=== PATIENT | female | born 1930 | race Caucasian/White ===

== ENCOUNTER 2016-10-27 17:21 | Emergency (ER) | payer MEDICARE ==
[~2016-10-27] VITALS: Ht 160 cm; Wt 57.0 kg
[~2016-10-27 17:21] MED LIST: ACYC400T PO; ALPR0.5T3 PO; ASPI325T PO; CALC1TAB26 PO; FOLI1TAB PO; LEVO100T4 PO; LISI-360 PO; MECL25CH PO; META48.53 PO; METH2.5 PO; NORC7.5T PO; SIMV20 PO; STOOL SOFTENER PO; TAB-TAB PO
[2016-10-27 17:26] VITALS: BP 166/89; PULSE 88; RESP 18; TEMP 98.9; O2SAT 99
[2016-10-27] MEDS ORDERED: FOLI400T PO (17:34)
[2016-10-27] MEDS ORDERED: ACYC400T PO (17:34)
[2016-10-27] MEDS ORDERED: SIMV20TA PO (17:34)
[2016-10-27] MEDS ORDERED: ASPI81CH CHEW (17:34)
[2016-10-27] MEDS ORDERED: LEVO100T5 PO (17:34)
[2016-10-27] MEDS ORDERED: MULTTAB67 PO (17:34)
[2016-10-27] MEDS ORDERED: HYDR-3580 PO (17:34)
[2016-10-27] MEDS ORDERED: CALC600T4 PO (17:34)
[2016-10-27] MEDS ORDERED: LISI10TA3 PO (17:34)
[2016-10-27] MEDS ORDERED: METH2.5T PO (17:34)
[2016-10-27] MEDS ORDERED: ALPR.5 PO (17:34)
[2016-10-27] MEDS ORDERED: ORPHENADRINE INJ 60 MG/2 ML AMP IM ONE (17:45)
[2016-10-27] MEDS ORDERED: KETOROLAC TROMETHAMINE 60 MG/2 ML (IM) VIAL IM ONE (17:45)
--- NOTE | 2016-10-27 17:57 | PD ---
HPI Chief Complaint: Pain: Acute or Chronic Time Seen by Provider: 17:30 Travel History International Travel<30 days: No Contact w/Intl Traveler<30days: No Traveled to known affect area: No History of Present Illness HPI Patient is a 6-year-old female presenting to the [facility] evaluation of back pain. Patient reports a history of back pain, she takes hydrocodone for this pain. Pain is similar in presentation but is more intense. She states it's been worse for the last 3-4 days, she has not attempted to contact her primary care provider. She denies any injury or trauma, she denies any dysuria, fevers , abdominal pain. Patient reports making her bed a few days ago and when she stood up her back started hurting worse. She states her pain is a 10 out of 10 , she took hydrocodone at 2 PM this afternoon. Patient states she's been taking it every 5 hours. PFSH Past Medical History Arthritis: Yes (RHEUMATOID) Blood Disorders: No Anxiety: Yes Depression: No Heart Rhythm Problems: No Cancer: Yes (melanoma 1995; SQUAMOUS CELL CA NECK) Cardiovascular Problems: Yes (HTN) High Cholesterol: Yes Chemotherapy: No Chest Pain: No Congestive Heart Failure: No Diabetes: No Diminished Hearing: No Endocrine: Yes Gastrointestinal Disorders: No Glaucoma: No Genitourinary: No Hepatitis: No Hiatal Hernia: No Hypertension: Yes Immune Disorder: Yes Implanted Vascular Access Dvce: Yes Medical other: Yes (arthritis) Musculoskeletal: Yes (RA) Neurologic: Yes Psychiatric: No Reproductive: No Respiratory: No (PNEUMONIA 06/07) Immunizations Current: Yes Radiation Therapy: No Thyroid Disease: Yes ?: Not LMP: menopause Menopausal: Yes : 2 Para: 2 Past Surgical History Body Medical Devices: MARTIN EYE LENS Eye Surgery: Yes (MARTIN CATARACT SX) Gynecologic Surgery: Yes (HYSTERECTOMY) Oral Surgery: Yes (T&A CHILDHOOD) Pacemaker: No Other Surgery: Yes Social History Alcohol Use: No Tobacco Use: No Substance Use: No Allergies-Medications (Allergen,Severity, Reaction): Coded Allergies: No Known Allergies (Verified , 12/09/15) Uncoded Allergies: ADHESIVES (Allergy, Intermediate, BLISTERS AND RED , 01/31/10) BANDAIDS CAN USE PAPER TAPE Reported Meds & Prescriptions Reported Meds & Active Scripts Active Aspirin 325 Mg Tab (Aspirin) 325 Mg Tab 325 Mg PO DAILY 30 Days Meclizine Hcl (Meclizine HCl) 25 Mg Chw 25 Mg PO Q8H PRN Reported Calcium Carbonate 1,500 Mg Tab 1,500 Mg PO BID 1,500 mg calcium carbonate (600 mg elemental calcium) Multiple Vitamin 1 Tab 1 Tab PO DAILY Aspirin 81 Mg Chew 81 Mg CHEW DAILY Simvastatin 20 Mg Tab 20 Mg PO DAILY Methotrexate 2.5 Mg Tab 2.5 Mg PO Q7D Lisinopril 10 Mg Tab 10 Mg PO DAILY Levothyroxine (Levothyroxine Sodium) 100 Mcg Tab 100 Mcg PO DAILY Hydrocodone-Acetaminophen 7.5-325 mg Tab 1 Tab PO Q4H PRN Folic Acid 400 Mcg Tab 1 Mcg PO DAILY Xanax (Alprazolam) 0.5 Mg Tab 0.5 Mg PO Q4H PRN Acyclovir 400 Mg Tab 400 Mg PO BID Metamucil Original Textur (Psyllium/Dextrose) Pow 1 Tsp PO PRN Calcium 600+D3 600-800 mg-Unit (Calcium Carbonate-Cholecalcife) 1 Tab Tab 1 Tab PO DAILY Rheumatrex (Methotrexate) 2.5 Mg Tab 15 Mg PO WEEKLY Lisinopril 10 mg (Lisinopril) 10 Mg Tab 10 Mg PO DAILY Levothyroxine 100 mcg (Levothyroxine Sodium) 100 Mcg Tab 100 Mcg PO DAILY Raysal 7.5-325 mg (Hydrocodone-Acetaminophen 7.5-325 mg) 1 Tab 1 Tab PO BID PRN Alprazolam 0.5 Mg Tab 0.5 Mg PO BID Acyclovir 400 mg (Acyclovir) 400 Mg Tab 400 Mg PO BID [Stool Softener] 1 Cap PO BID Folate (Folic Acid) 1 Mg Tab 1 Mg PO DAILY Multivitamin (Multivitamins) 1 Tab Tab 1 Tab PO DAILY Zocor (Simvastatin) 20 Mg Tab 20 Mg PO HS Review of Systems Except as stated in HPI: all other systems reviewed are Neg Musculoskeletal: Positive: Myalgias, Arthralgias, Pain Psychiatric: Positive: Anxiety Physical Exam Narrative GENERAL: Well-developed, well-nourished, elderly female. Resting comfortably in no acute distress. Appears anxious. SKIN: Focused skin assessment warm/dry. HEAD: Atraumatic. Normocephalic. EYES: Pupils equal and round. No scleral icterus. No injection or drainage. ENT: No nasal bleeding or discharge. Mucous membranes pink and moist. NECK: Trachea midline. No JVD. CARDIOVASCULAR: Regular rate and rhythm. 2/6 systolic murmur RESPIRATORY: No accessory muscle use. Clear to auscultation. Breath sounds equal bilaterally. GASTROINTESTINAL: Abdomen soft, non-tender, nondistended. Hepatic and splenic margins not palpable. MUSCULOSKELETAL: No obvious deformities. No clubbing. No cyanosis. No edema. NEUROLOGICAL: Awake and alert. No obvious cranial nerve deficits. Motor grossly within normal limits. Normal speech. PSYCHIATRIC: Anxious mood and affect; insight and judgment normal. Data Data Last Documented VS Vital Signs Date Time Temp Pulse Resp B/P Pulse Ox O2 Delivery O2 Flow Rate FiO2 10/27/16 18:20 18 10/27/16 17:26 98.9 88 166/89 99 Orders Ketorolac Inj (Toradol Inj) (10/27/16 17:45) Orphenadrine Inj (Norflex Inj) (10/27/16 17:45) Urinalysis - C+S If Indicated (10/27/16 17:40) Labs Laboratory Tests Test 10/27/16 18:08 Urine Color LIGHT-YELLOW Urine Turbidity CLEAR Urine pH 7.5 Urine Specific [place] 1.004 Urine Protein NEG mg/dL Urine Glucose (UA) NEG mg/dL Urine Ketones NEG mg/dL Urine Occult Blood NEG Urine Nitrite NEG Urine Bilirubin NEG Urine Urobilinogen LESS THAN 2.0 MG/DL Urine Leukocyte Esterase NEG Urine RBC LESS THAN 1 /hpf Urine WBC LESS THAN 1 /hpf Urine Squamous Epithelial <1 /hpf Cells Microscopic Urinalysis Comment CULT NOT INDICATED MDM Medical Decision Making Medical Screen Exam Complete: Yes Emergency Medical Condition: Yes Interpretation(s) Vital Signs Date Time Temp Pulse Resp B/P Pulse Ox O2 Delivery O2 Flow Rate FiO2 10/27/16 17:26 98.9 88 18 166/89 99 Differential Diagnosis Acute on chronic back pain versus UTI versus anxiety versus muscle sprain versus muscle spasm Narrative Course Patient is 86-year-old female presenting to emergency department via EMS for evaluation of back pain. Patient has a chronic history of back pain, pain is similar to what she is experiencing the past. Patient takes hydrocodone for pain normally but this has not been helping. Patient has had no new injury or trauma, urinalysis is negative for urinary tract infection. Patient was given Toradol and Norflex in the emergency department, she reports mild improvement in her pain. Patient has a walker at home that she can utilize to ambulate with , she lives at [facility] with her . Son presented to the emergency department to corn picker patient and bring her home. He was also educated on discharge instructions and need for follow-up. He stated that she ambulates with a walker normally. Patient is stable for discharge. Diagnosis Primary Impression: Chronic back pain Qualified Code: M54.9 - Chronic back pain, unspecified back location, unspecified back pain laterality Referrals: Primary Care Physician 3 days Patient Instructions: Back Pain (ED), General Instructions Additional Instructions: Apply warm moist heat to affected area, continue range of motion exercises Follow-up with your primary doctor Continue home medications previously prescribed Return to emergency department for any new or worsening symptoms Med/Other Pt SpecificInfo: No Change to Meds Disposition: 01 DISCHARGE HOME Condition: Stable Anabella Graves Oct 27, 2016 17:57
[2016-10-27 18:39] LABS: BLOOD, URINE NEG (NEG); GLUCOSE,URINE NEG (NEG); KETONE, URINE NEG (NEG); NITRITE,URINE NEG (NEG); PH, URINE 7.5 (5.0-8.5); SQUAMOUS EPITHELIAL CELL URINE <1 /hpf (0-5); URINE COLOR LIGHT-YELLOW (YELLW/STRAW)
[2016-10-27 18:44] LABS: COMMENT (UR) CULT NOT INDICATED; CULTURE IF INDICATED CULT NOT INDICATED
== END 2016-10-27 19:52 | disposition home or self-care (01) ==
LOC: NEPD 17:21
DX: M54.9 Dorsalgia, unspecified (principal); G89.29 Other chronic pain; I10 Essential (primary) hypertension; M06.9 Rheumatoid arthritis, unspecified
CPT/HCPCS: 81001; 96372; 99284; J1885; J2360

== ENCOUNTER 2016-11-23 22:38 | Emergency (ER) | payer MEDICARE ==
[~2016-11-23] VITALS: Ht 160 cm; Wt 54.0 kg
[~2016-11-23 22:38] MED LIST changes: +ALPR.5 PO; +ASPI81CH CHEW; +CALC600T4 PO; +FOLI400T PO; +HYDR-3580 PO; +LEVO100T5 PO; +LISI10TA3 PO; +METH2.5T PO; +MULTTAB67 PO; +SIMV20TA PO
[2016-11-23 22:44] VITALS: BP 169/77; PULSE 116; RESP 22; TEMP 98.5; O2SAT 99
[2016-11-23] MEDS ORDERED: KETOROLAC TROMETHAMINE 30 MG/ML (IVP) VIAL IV PUSH ONE (23:00)
--- NOTE | 2016-11-23 23:06 | PD ---
HPI Chief Complaint: Pain: Acute or Chronic Time Seen by Provider: 23:01 Travel History International Travel<30 days: No Contact w/Intl Traveler<30days: No Traveled to known affect area: No History of Present Illness HPI 86-year-old female presents to the emergency department by EMS transport from local assisted living facility for complaint of severe low back pain and right thigh pain. Patient states symptoms have acutely worsen 7 7 PM. Pain is unresponsive to one half dose of Lortab. Patient takes hydrocodone daily. Patient has history of severe osteoarthritis rheumatoid arthritis and spinal stenosis. Patient denies any abdominal pain. Patient has noted some redness and discomfort to the lower leg. Patient states pain with range of motion at the hip causes excruciating pain 10 over 10 in intensity. Patient has no pallor or coolness of the right lower extremity. Patient has no history of claudication. Patient has chronic back pain was here 10/27/16 with exacerbation of low back pain responsive to anti-inflammatories. Patient's had no dysuria frequency urgency flank pain or hematuria. Patient denies any chest pain or shortness of breath. Patient's had no fever or chills. PFSH Past Medical History Narrative Medical Rheumatoid arthritis spinal stenosis dyslipidemia CVA melanoma hypothyroidism hypertension anxiety; cataract surgery hysterectomy tonsillectomy; no tobacco use: Nursing notes reviewed Arthritis: Yes (RHEUMATOID) Blood Disorders: No Anxiety: Yes Depression: No Heart Rhythm Problems: No Cancer: Yes (melanoma 1995; SQUAMOUS CELL CA NECK) Cardiovascular Problems: Yes (HTN) High Cholesterol: Yes Chemotherapy: No Chest Pain: No Congestive Heart Failure: No Cerebrovascular Accident: Yes (2016) Diabetes: No Patient Takes Glucophage: No Diminished Hearing: No Endocrine: Yes Gastrointestinal Disorders: No Glaucoma: No Genitourinary: No Hepatitis: No Hiatal Hernia: No Hypertension: Yes Immune Disorder: Yes Implanted Vascular Access Dvce: Yes Medical other: Yes (arthritis) Musculoskeletal: Yes (RA) Neurologic: Yes Psychiatric: No Reproductive: No Immunizations Current: Yes Radiation Therapy: No Thyroid Disease: Yes Tetanus Vaccination: > 5 Years Influenza Vaccination: No ?: Not Menopausal: Yes : 2 Para: 2 Past Surgical History Body Medical Devices: MARTIN EYE LENS Eye Surgery: Yes (MARTIN CATARACT SX) Gynecologic Surgery: Yes (HYSTERECTOMY) Hysterectomy: Yes Oral Surgery: Yes (T&A CHILDHOOD) Pacemaker: No Other Surgery: Yes Social History Alcohol Use: No Tobacco Use: No Substance Use: No Allergies-Medications (Allergen,Severity, Reaction): Coded Allergies: No Known Allergies (Verified , 12/09/15) Uncoded Allergies: ADHESIVES (Allergy, Intermediate, BLISTERS AND RED , 01/31/10) BANDAIDS CAN USE PAPER TAPE Reported Meds & Prescriptions Reported Meds & Active Scripts Active Keflex (Cephalexin) 500 Mg Capsule 500 Mg PO QID 10 Days Doxycycline Hyclate 100 Mg Cap 100 Mg PO BID Reported Vitamin D3 (Cholecalciferol) 400 Unit Tab 400 Units PO DAILY Calcium Carbonate 1,500 Mg Tab 1,500 Mg PO BID 1,500 mg calcium carbonate (600 mg elemental calcium) Multiple Vitamin 1 Tab 1 Tab PO DAILY Aspirin 81 Mg Chew 81 Mg CHEW DAILY Simvastatin 20 Mg Tab 20 Mg PO DAILY Methotrexate 2.5 Mg Tab 2.5 Mg PO Q7D Lisinopril 10 Mg Tab 10 Mg PO DAILY Levothyroxine (Levothyroxine Sodium) 100 Mcg Tab 100 Mcg PO DAILY Hydrocodone-Acetaminophen 7.5-325 mg Tab 1 Tab PO Q4H PRN Folic Acid 400 Mcg Tab 1 Mcg PO DAILY Xanax (Alprazolam) 0.5 Mg Tab 0.5 Mg PO Q4H PRN Acyclovir 400 Mg Tab 400 Mg PO BID [Stool Softener] 1 Cap PO BID Review of Systems Except as stated in HPI: all other systems reviewed are Neg General / Constitutional: No: Fever, Chills HENT: No: Congestion Cardiovascular: No: Chest Pain or Discomfort Respiratory: No: Shortness of Breath Gastrointestinal: No: Vomiting, Abdominal Pain Genitourinary: No: Decreased Urinary Output, Flank Pain Musculoskeletal: Positive: Myalgias, Arthralgias, Limited ROM, Pain Skin: No Rash Neurologic: No: Weakness, Dizziness Psychiatric: No: Anxiety Hematologic/Lymphatic: No: Lymph Node Enlargement Physical Exam Narrative GENERAL: Elderly frail female in obvious discomfort no respiratory distress SKIN: Warm and dry. HEAD: Normocephalic. EYES: No scleral icterus. No injection or drainage. NECK: Supple, trachea midline. No JVD or lymphadenopathy. CARDIOVASCULAR: Regular rate and rhythm without murmurs, gallops, or rubs. RESPIRATORY: Breath sounds equal bilaterally. No accessory muscle use. GASTROINTESTINAL: Abdomen soft, non-tender, nondistended. No guarding or rebound. No palpable pulsatile mass. Nondistended. MUSCULOSKELETAL: No cyanosis, or edema. Mild right lower leg edema and erythema. Negative Homans. Mild increased warmth. No pallor or coolness. Dorsalis pedis pulse 2+ to palpation, capillary refill brisk and less than 2 seconds. Range of motion at right hip causes increased pain with attempted hip flexion internal/external rotation abduction unable to perform abduction. No limb length discrepancy no shortening or external rotation or internal rotation of the right lower extremity. BACK: Nontender without obvious deformity. No CVA tenderness. Data Data Last Documented VS Vital Signs Date Time Temp Pulse Resp B/P Pulse Ox O2 Delivery O2 Flow Rate FiO2 11/24/16 02:13 110 20 152/71 94 Room Air 11/23/16 22:44 98.5 Orders Hip, Uni(Ap&Lat) W Ap Pelvis (11/23/16 ) ^ Saline Lock (11/23/16 22:58) Complete Blood Count With Diff (11/23/16 22:58) Basic Metabolic Panel (Bmp) (11/23/16 22:58) Urinalysis - C+S If Indicated (11/23/16 22:58) Us Leg Venous Doppler (11/23/16 ) Ketorolac Inj (Toradol Inj) (11/23/16 23:00) Spine, Lumbar - Lateral Only (11/23/16 ) Doxycycline (Vibramycin) (11/24/16 02:30) Labs Laboratory Tests Test 11/23/16 11/24/16 23:40 00:47 White Blood Count 14.0 TH/MM3 Red Blood Count 3.94 MIL/MM3 Hemoglobin 12.8 GM/DL Hematocrit 36.5 % Mean Corpuscular Volume 92.6 FL Mean Corpuscular Hemoglobin 32.5 PG Mean Corpuscular Hemoglobin 35.1 % Concent Red Cell Distribution Width 14.7 % Platelet Count 369 TH/MM3 Mean Platelet Volume 6.6 FL Neutrophils (%) (Auto) 83.7 % Lymphocytes (%) (Auto) 7.0 % Monocytes (%) (Auto) 8.9 % Eosinophils (%) (Auto) 0.2 % Basophils (%) (Auto) 0.2 % Neutrophils # (Auto) 11.7 TH/MM3 Lymphocytes # (Auto) 1.0 TH/MM3 Monocytes # (Auto) 1.2 TH/MM3 Eosinophils # (Auto) 0.0 TH/MM3 Basophils # (Auto) 0.0 TH/MM3 CBC Comment DIFF FINAL Differential Comment Sodium Level 130 MEQ/L Potassium Level 4.1 MEQ/L Chloride Level 92 MEQ/L Carbon Dioxide Level 25.5 MEQ/L Anion Gap 13 MEQ/L Blood Urea Nitrogen 10 MG/DL Creatinine 0.73 MG/DL Estimat Glomerular Filtration 76 ML/MIN Rate Random Glucose 110 MG/DL Calcium Level 10.1 MG/DL Urine Color LIGHT-YELLOW Urine Turbidity CLEAR Urine pH 8.0 Urine Specific [place] 1.007 Urine Protein NEG mg/dL Urine Glucose (UA) NEG mg/dL Urine Ketones 10 mg/dL Urine Occult Blood NEG Urine Nitrite NEG Urine Bilirubin NEG Urine Urobilinogen LESS THAN 2.0 MG/DL Urine Leukocyte Esterase NEG Urine WBC 1 /hpf Urine Squamous Epithelial <1 /hpf Cells Microscopic Urinalysis Comment CULT NOT INDICATED MDM Medical Decision Making Medical Screen Exam Complete: Yes Emergency Medical Condition: Yes Medical Record Reviewed: Yes Interpretation(s) Last Impressions Lumbar Spine X-Ray 11/23/16 0000 Signed Impressions: Service Date/Time: Wednesday, November 23, 2016 23:18 - CONCLUSION: No definite fractures identified but there is marked degenerative disease at multiple levels. Crispin Spicer MD Lower Extremity Ultrasound 11/23/16 0000 Signed Impressions: Service Date/Time: Wednesday, November 23, 2016 23:45 - CONCLUSION: Normal examination. Crispin Spicer MD Hip and Pelvis X-Ray 11/23/16 0000 Signed Impressions: Service Date/Time: Wednesday, November 23, 2016 23:18 - CONCLUSION: Unremarkable examination of the right hip. Crispin Spicer MD CBC & BMP Diagram 11/23/16 23:40 Vital Signs Date Time Temp Pulse Resp B/P Pulse Ox O2 Delivery O2 Flow Rate FiO2 11/24/16 02:13 110 20 152/71 94 Room Air 11/23/16 22:44 98.5 116 22 169/77 99 Differential Diagnosis Sciatica, lumbar radiculopathy, cellulitis, DVT Narrative Course 86-year-old female with history of rheumatoid arthritis gastroenteritis spinal stenosis recurrent chronic low back pain presents to the emergency department complaining of severe pain to her right lower extremity affecting the thigh. Patient states pain is worsened by range of motion of the right lower extremity at the hip; no report of knee pain Pain or ankle pain. No significant swelling noticed that mild erythema to the anterior right lower leg. Patient states she has severe anxiety. Patient states that she has severe motor grossly cannot rest supine for imaging studies; patient sent for imaging of the lumbar spine pelvis and hip. Patient administered Toradol 30 mg IV. Imaging study showed no acute abnormality but significant degenerative changes and arthritic changes. Patient reports significant relief of pain after injection of Toradol urinalysis remains pending; patient identified to have sinus tachycardia concerning for possible infectious etiology and now is identified to have elevated total white cell count. Patient has no pain in her hip with range of motion at this time and does not show any kind of skin rash except for the anterior purvis of the right lower extremity concerning for non-circumferential cellulitis of the right lower leg. Patient reports she feels improved is desirous of being discharged home is anxious now because her son is at the bedside and she wants to get home to get some sleep and does not want to be here any longer but does note that she has to wait for urinalysis report Urinalysis is found to be within normal limits; suspect white cell count cellulitis of the right lower leg mild elevation of white count leukocytosis 14, 000*patient on oral antibiotic in the emergency department unless patient now finding other source of discomfort or pain. Patient denies any pain is able to ambulate about her exam room with minimal difficulty she typically uses a walker to assist with ambulation. According to the patient's son the patient with recent steroid injection for her chronic back pain which may account for leukocytosis or wheeze contribute to observe leukocytosis. Patient is otherwise stable for outpatient management and follow-up with her primary care provider. Patient will be treated with oral antibiotic as an outpatient and encouraged to follow-up to the emergency department of the week and should she have any fever 100.4F or greater worsening symptoms or otherwise follow-up with her primary care provider on Saturday. Diagnosis Primary Impression: Sciatica Qualified Code: M54.31 - Sciatica of right side Additional Impressions: Chronic back pain Qualified Code: M54.41 - Chronic bilateral low back pain with right-sided sciatica Cellulitis of right leg Referrals: Primary Care Physician 3 days Patient Instructions: General Instructions Additional Instructions: Increase fluid hydration Monitor temperature every 4 hours with thermometer take acetaminophen/Tylenol every fours for fever 100.4F or greater Complete course of antibiotic as prescribed Elevate right lower extremity Return to the emergency department for any fever pain or change in condition Follow-up with primary care provider call office on Saturday to schedule follow- up appointment Continue current chronic medications as chronically prescribed Med/Other Pt SpecificInfo: Prescription(s) given Scripts Cephalexin (Keflex)500 Mg [id number] Mg PO QID 10 Days Ref 0 Prov:Priyanka Prado MD 11/24/16 Doxycycline Hyclate 100 Mg [id number] Mg PO BID #14 CAP Ref 0 Prov:Priyanka Prado MD 11/24/16 Disposition: 01 DISCHARGE HOME Condition: Stable Priyanka Prado MD Nov 23, 2016 23:06
--- NOTE | 2016-11-23 23:42 | RADRPT ---
EXAM DATE/TIME: 11/23/2016 23:18 [facility] COMPARISON: No previous studies available for comparison. INDICATIONS : Right hip and femur pain MEDICAL HISTORY : Osteoarthritis. Spinal stenosis. SURGICAL HISTORY : None. ENCOUNTER: Initial ACUITY: 1 day PAIN SCORE: 10/10 LOCATION: Right Hip FINDINGS: Examination of the right hip was performed with AP Pelvis. The primary and secondary trabecular oj andres of the femoral neck is intact. The hip joint is of normal width without significant sclerosis or bony hypertrophy. The acetabulum is grossly intact. CONCLUSION: Unremarkable examination of the right hip. Crispin Spicer MD on November 23, 2016 at 23:41 Board Certified Radiologist. This report was verified electronically.
[2016-11-24 00:03] LABS: AUTOMATED NEUTROPHIL # 11.7 TH/MM3 (1.8-7.7); BASOPHIL % 0.2 % (0.0-2.0); EOSINOPHIL % 0.2 % (0.0-4.0); HEMATOCRIT 36.5 % (35.0-46.0); HEMO FLAGS DIFF FINAL; MEAN CELL VOLUME 92.6 FL (80.0-100.0); MEAN CORPUSCULAR HEMOGLOBIN 32.5 PG (27.0-34.0); MEAN CORPUSCULAR HGB CONC 35.1 % (32.0-36.0); MONO % 8.9 % (0.0-8.0); NEUT % 83.7 % (16.0-70.0); PLATELET COUNT 369 TH/MM3 (150-450); RED BLOOD COUNT 3.94 MIL/MM3 (4.00-5.30); RED CELL DISTRIBUTION WIDTH 14.7 % (11.6-17.2)
--- NOTE | 2016-11-24 00:10 | RADRPT ---
EXAM DATE/TIME: 11/23/2016 23:45 [facility] COMPARISON: No previous studies available for comparison. INDICATIONS : Right leg pain. MEDICAL HISTORY : Hypercholesterolemia. Hypertension. Thyroid disease. Cerebrovascular accident. Arthritis. Carc inoma, squamous cell. Anxiety. Endocrine disorder. Carcinoma, melanoma. SURGICAL HISTORY : Hysterectomy. Bilateral cataract surgery. ENCOUNTER: Initial ACUITY: 1 day PAIN SCORE: 6/10 LOCATION: Right leg TECHNIQUE: Venous ultrasound of the leg was performed from the inguinal ligament to the proximal calf. Real-peter e, color Doppler and spectral tracing, compression and augmentation techniques were used. FINDINGS: There is normal compressibility of the deep venous system from the inguinal region to the proximal ca lf. No echogenic clot is seen in the lumen of the common femoral, femoral, popliteal, and posterior tibial veins. There is a normal response of the venous system to proximal and distal augmentation an d respiration. CONCLUSION: Normal examination. Crispin Spicer MD on November 24, 2016 at 0:08 Board Certified Radiologist. This report was verified electronically.
--- NOTE | 2016-11-24 00:14 | RADRPT ---
EXAM DATE/TIME: 11/23/2016 23:18 [facility] COMPARISON: No previous studies available for comparison. INDICATIONS : Lumbar pain MEDICAL HISTORY : Spinal stenosis. Osteoarthritis. SURGICAL HISTORY : Lumbar fusion ENCOUNTER: Initial ACUITY: 1 day PAIN SCORE: 7/10 LOCATION: posterior lumbar FINDINGS: A single lateral view of the lumbar spine was performed. There has been previous fusion at L4-5. Ther e is marked discogenic sclerosis at L3-4 L2-3 and L1-2. Slight retrolisthesis of L2 on L3. Minimal w edging of L1 I suspect is chronic. CONCLUSION: No definite fractures identified but there is marked degenerative disease at multiple levels. Crispin Spicer MD on November 24, 2016 at 0:12 Board Certified Radiologist. This report was verified electronically.
[2016-11-24 00:17] LABS: BICARBONATE 25.5 MEQ/L (21.0-32.0); POTASSIUM 4.1 MEQ/L (3.5-5.1)
[2016-11-24] MEDS ORDERED: VITD400 PO (01:05)
[2016-11-24 01:32] LABS: BLOOD, URINE NEG (NEG); GLUCOSE,URINE NEG (NEG); KETONE, URINE 10 mg/dL (NEG); NITRITE,URINE NEG (NEG); SQUAMOUS EPITHELIAL CELL URINE <1 /hpf (0-5); URINE COLOR LIGHT-YELLOW (YELLW/STRAW)
[2016-11-24 01:58] LABS: COMMENT (UR) CULT NOT INDICATED; CULTURE IF INDICATED CULT NOT INDICATED
[2016-11-24 02:13] VITALS: BP 152/71; PULSE 110; RESP 20; O2SAT 94
[2016-11-24] MEDS ORDERED: CEPH-460 PO (02:24)
[2016-11-24] MEDS ORDERED: DOXY100C PO (02:24)
[2016-11-24] MEDS ORDERED: DOXYCYCLINE HYCLATE 100 MG CAP PO ONE (02:30)
== END 2016-11-24 02:50 | disposition home or self-care (01) ==
LOC: NEPC 22:38
DX: M54.41 Lumbago with sciatica, right side (principal); L03.115 Cellulitis of right lower limb; M06.9 Rheumatoid arthritis, unspecified; E03.9 Hypothyroidism, unspecified
CPT/HCPCS: 72020; 73502; 80048; 81001; 85025; 93971; 96374; 99285; J1885